=== PATIENT | female | born 1935 | race Caucasian/White ===

== ENCOUNTER 2017-06-13 18:33 | Emergency (ER) | payer MEDICARE, OTHER ==
--- NOTE | 2017-06-13 19:13 | ED.PDOC ---
History of Present Illness - General Chief Complaint: Neuro Symptoms/Deficits Stated Complaint: altered mental status Time Seen by Provider: 06/13/17 18:55 Source: family Exam Limitations: clinical condition - History of Present Illness Initial Comments: Patient presents with increasing sleepiness for 7 hours. The daughter is here and says that the patient vomited once and had one episode of diarrhea. Otherwise, she has had not other symptoms nor complaints except for the sleepiness. She has stayed in bed for seven hours and slept. She is arousable and will answer questions but goes back to sleep almost immediately. She denies any pain complaints. No known history of recent falls. The family says that she has been walking 5 miles per day in preparation for an "olympics" competition that her care facility is putting on. No cardiac nor CVA history. No hx of DM/ smoking. No other complaints. Timing/Duration: unsure, other - 7 hours Severity: moderate Improving Factors: nothing Worsening Factors: nothing Associated Symptoms: denies symptoms Allergies/Adverse Reactions: Allergies Codeine Allergy (Verified 10/05/15 12:11) Other Causes itching Home Medications: Ambulatory Orders Aspirin [Dmaon Low Dose] 81 mg PO DAILY 10/05/15 Cholecalciferol [Vitamin D] 400 unit PO DAILY 10/05/15 Cyanocobalamin [Vitamin B12] 1,000 mcg PO DAILY 10/05/15 Loratadine [Claritin] 10 mg PO DAILY PRN 10/05/15 Multiple Minerals W/ Vitamins [Calcium Citrate +] 2 tab PO DAILY 10/05/15 Multiple Vitamins W/ Minerals [Multivitamin Adults] 1 tab PO DAILY 10/05/15 Non-Formulary Medication 1 drop OPHTH BID 10/05/15 Probiotic Product [Probiotic] 1 tab PO DAILY 10/05/15 prednisoLONE ACETATE 1% OPHTH [Econopred Plus] 5 ml OPHTH DAILY 10/05/15 Lisinopril 20 mg PO DAILY #0 10/06/15 Review of Systems - Review of Systems Constitutional: States: see HPI EENTM: States: no symptoms reported Respiratory: States: no symptoms reported Cardiology: States: no symptoms reported Gastrointestinal/Abdominal: States: no symptoms reported Musculoskeletal: States: no symptoms reported Skin: States: no symptoms reported Neurological: States: see HPI Endocrine: States: no symptoms reported Hematologic/Lymphatic: States: no symptoms reported Past Medical History (General) - Patient Medical History Hx Stroke: Yes - TIA Hx of COPD: No Hx Cardiac Disorders: Yes - hyperlipidemia, heart murmur since childhood Hx Congestive Heart Failure: No Hx Hypertension: Yes Hx Diabetes: No Hx MRSA: No - Vaccination History Hx Influenza Vaccination: Yes Hx Pneumococcal Vaccination: Yes - Social History Hx Tobacco Use: No - Activities of Daily Living [facility] (if applicable):: [place] Family Medical History - Family History Mother Living Status: Hx Cardiac Disease: Yes - [place] Physical Exam - Physical Exam General Appearance: Lethargic Eye Exam: bilateral normal Ears, Nose, Throat: normal ENT inspection Neck: non-tender, full range of motion, supple Respiratory: chest non-tender, lungs clear, normal breath sounds Cardiovascular/Chest: normal peripheral pulses, regular rate, rhythm, no edema Gastrointestinal/Abdominal: normal bowel sounds, non tender, soft Back Exam: normal inspection, no CVA tenderness Extremity: normal range of motion, non-tender, normal inspection Neurologic: web mobile designer II-XII nml as tested, no motor/sensory deficits, other - sleepy Skin Exam: normal color Lymphatic: no adenopathy Progress - Progress Progress: 06/13/17 19:56 Laboratory Tests 06/13/17 06/13/17 06/13/17 19:02 19:03 19:03 WBC RBC Hgb Hct MCV MCH MCHC RDW Plt Count MPV Absolute Neuts (auto) Absolute Lymphs (auto) Absolute Monos (auto) Absolute Eos (auto) Absolute Basos (auto) Neutrophils % Lymphocytes % Monocytes % Eosinophils % Basophils % PT 10.7 INR 0.920 PTT (SP) 28.8 Sodium 135 Potassium 3.8 Chloride 101 Carbon Dioxide 26 Anion Gap 11.8 L BUN 18 Creatinine 0.76 BUN/Creatinine Ratio 23.7 H POC Glucose Random Glucose 134 H Serum Osmolality 274.0 L Calcium 9.3 Total Bilirubin 0.6 AST 24 ALT 21 Alkaline Phosphatase 58 Creatine Kinase 169 H Troponin I < 0.02 Serum Total Protein 7.0 Albumin 4.0 Globulin 3.0 Albumin/Globulin Ratio 1.3 Salicylates Acetaminophen 06/13/17 06/13/17 06/13/17 19:30 19:30 19:30 WBC 7.7 RBC 4.49 Hgb 13.2 Hct 39.5 MCV 87.9 MCH 29.3 MCHC 33.3 RDW 14.4 Plt Count 251 MPV 8.2 Absolute Neuts (auto) 6.80 Absolute Lymphs (auto) 0.70 L Absolute Monos (auto) 0.20 Absolute Eos (auto) 0.00 Absolute Basos (auto) 0.00 Neutrophils % 88.0 H Lymphocytes % 9.4 L Monocytes % 2.2 Eosinophils % 0.1 L Basophils % 0.3 PT INR PTT (SP) Sodium Potassium Chloride Carbon Dioxide Anion Gap BUN Creatinine BUN/Creatinine Ratio POC Glucose 130 H Random Glucose Serum Osmolality Calcium Total Bilirubin AST ALT Alkaline Phosphatase Creatine Kinase Troponin I Serum Total Protein Albumin Globulin Albumin/Globulin Ratio Salicylates < 4.0 Acetaminophen < 10.[address] head showed large intraparenchymal bleed. Patient transferred to [facility] for further consult with Dr. Valdes. - EKG/XRAY/CT CT Ordered: Yes Departure - Departure Clinical Impression: Intracerebral hemorrhage Disposition: Transfer to Hospital Condition: Serious Departure Forms: ED Discharge - Pt. Copy, Patient Portal Self Enrollment Diet: other - NPO Activity: other - as per hospitalist Referrals: Prabhjot Noland MD [Primary Care Provider] - 1-2 Weeks Home Medications: Ambulatory Orders Aspirin [Damon Low Dose] 81 mg PO DAILY 10/05/15 Cholecalciferol [Vitamin D] 400 unit PO DAILY 10/05/15 Cyanocobalamin [Vitamin B12] 1,000 mcg PO DAILY 10/05/15 Loratadine [Claritin] 10 mg PO DAILY PRN 10/05/15 Multiple Minerals W/ Vitamins [Calcium Citrate +] 2 tab PO DAILY 10/05/15 Multiple Vitamins W/ Minerals [Multivitamin Adults] 1 tab PO DAILY 10/05/15 Non-Formulary Medication 1 drop OPHTH BID 10/05/15 Probiotic Product [Probiotic] 1 tab PO DAILY 10/05/15 prednisoLONE ACETATE 1% OPHTH [Econopred Plus] 5 ml OPHTH DAILY 10/05/15 Lisinopril 20 mg PO DAILY #0 10/06/15
--- NOTE | 2017-06-13 19:28 | CT ---
EXAM DESCRIPTION: Head CLINICAL HISTORY: altered mental status COMPARISON: MR brain 04/30/2013 TECHNIQUE: Contiguous axial CT images of the head were obtained. Coronal and sagittal reconstructions were created from the axial data. This exam was performed according to our departmental dose-optimization program, which includes automated exposure control, adjustment of the mA and/or kV according to patient size and/or use of iterative reconstruction technique. FINDINGS: There is a large intraparenchymal left frontal lobe hemorrhage with surrounding edema. This causes rightward shift of midline structures and effaces the left lateral ventricular frontal horn. No other hemorrhage is seen elsewhere. Severe patient motion limits detail. No etiology for the hemorrhage is seen on this noncontrast CT scan. Reconstruction images are severely limited by patient motion. IMPRESSION: Large intraparenchymal left frontal lobe hemorrhage. Possible etiologies include hemorrhagic mass, aneurysm or other vascular malformation, hypocoagulability/bleeding diathesis or other etiology. I am attempting to reach the referring clinician now. Electronically signed by: Khang Loco 06/13/2017 7:27 PM CDT
--- NOTE | 2017-06-13 19:50 | RAD ---
EXAM DESCRIPTION: Chest,1 View CLINICAL HISTORY: altered mental status COMPARISON: None. FINDINGS: Cardiac silhouette is within normal limits. There is no focal parenchymal or pleural disease. Visualized osseous structures are within normal limits. IMPRESSION: No evidence of acute cardiopulmonary disease. Electronically signed by: Khang Loco 06/13/2017 7:48 PM CDT
[2017-06-13 20:47] VITALS: BP 161/75; TEMP 98.5; O2SAT 98
== END 2017-06-13 20:45 | disposition short-term general hospital (02) ==
LOC: ER 18:33
DX: I61.8 Other nontraumatic intracerebral hemorrhage (principal); E78.5 Hyperlipidemia, unspecified; R01.1 Cardiac murmur, unspecified; I10 Essential (primary) hypertension; Z79.82 Long term (current) use of aspirin; Z79.899 Other long term (current) drug therapy

== ENCOUNTER → 2017-08-18 | Outpatient (CLI) | payer OTHER | LOC: BFHH 08:41 | PROVIDERS: ATTEND Family Medicine | DX: I10 Essential (primary) hypertension (principal); E78.5 Hyperlipidemia, unspecified; Z79.899 Other long term (current) drug therapy ==

== ENCOUNTER → 2017-09-03 | Outpatient (CLI) | payer OTHER ==
--- NOTE | 2017-09-03 09:17 | CT ---
EXAM DESCRIPTION: Head CLINICAL HISTORY: Transient cerebral ischemic attack, unspecified COMPARISON: Previous CT head October 05, 2015 and more recent comparison CT head June 13, 2017 TECHNIQUE: Noncontrast head CT was performed with routine protocol. FINDINGS: Compared to previous study, the large left frontal hemorrhage has been evacuated with a left frontal craniotomy flap. Linear hyperdensity deep to the flap is seen which measures 2 mm in thickness. Thickened dura of the flap or thin residual postoperative subdural hematoma would be the main considerations. Low density of the left frontal lobe is consistent with encephalomalacia. High density from the intraparenchymal hemorrhage has resolved. Low-density white matter is consistent with chronic microvascular ischemic changes. Ventricles are prominent as are the sulci consistent with generalized senescent atrophy. No new defect of the arredondo matter stripe to suggest an acute infarction. No new hyperdensity to suggest intracranial hemorrhage other than that related to the previous surgery and the previous left frontal bleed. IMPRESSION: Postoperative changes of left craniotomy with thin residual crescent of subdural blood or thickened dura. Encephalomalacia of the left frontal lobe. Generalized age-related cerebral volume loss with chronic microvascular ischemic changes in the white matter. This exam was performed according to our departmental dose-optimization program, which includes automated exposure control, adjustment of the mA and/or kV according to patient size and/or use of iterative reconstruction technique. Total DLP equals 859.97 mGycm. Electronically signed by: Amrik Whipple MD 09/03/2017 9:15 AM CDT
== END ==
LOC: CT 08:10
DX: G45.9 Transient cerebral ischemic attack, unspecified (principal); G93.89 Other specified disorders of brain; Z98.890 Other specified postprocedural states

== ENCOUNTER → 2018-11-23 | Outpatient (CLI) | payer OTHER | LOC: GMA MATASK 10:44 | PROVIDERS: ATTEND Family Medicine | DX: I10 Essential (primary) hypertension (principal) ==

== ENCOUNTER → 2019-07-08 | Outpatient (CLI) | payer OTHER ==
--- NOTE | 2019-07-08 11:46 | CT ---
EXAM DESCRIPTION: Head w/wo Contrast CLINICAL HISTORY: ALTERED MENTAL STATUS UNSPEC COMPARISON: September 03, 2017 TECHNIQUE: CT brain is performed prior to and following IV administration of nonionic contrast. MPR reformatted images obtained. This exam was performed according to our departmental dose-optimization program, which includes automated exposure control, adjustment of the mA and/or kV according to patient size and/or use of iterative reconstruction technique. FINDINGS: Postoperative changes involving the left-sided calvarium particularly in the left frontal region with previous fixation of calvarial flap is noted and a essentially nondisplaced fracture line or craniotomy extending near the vertex of the skull posteriorly on the left is unchanged from 2018 examination. Extensive periventricular and subcortical white matter changes of aging and small vessel disease noted. Encephalomalacia of the left frontal lobe inferiorly and anteriorly is unchanged from previous study. No mass effect or midline shift is evident with no evidence of subarachnoid or intracranial or subdural hemorrhage. Mild enlargement of the anterior horn left lateral ventricle consistent with atrophic changes is unchanged. The visualized petrous ridges and upper paranasal sinuses remain clear without acute inflammation. Postcontrast imaging demonstrates normal meningeal and vascular structures. Acute or chronic subdural fluid collection or epidural fluid collection is not apparent. The third and fourth ventricles remain midline. No specific abnormality other than mild atrophy and posterior fossa. IMPRESSION: 1. Postoperative changes with left frontal craniotomy and either craniotomy or incompletely healed nondisplaced fracture extending near the vertex of the skull on the left posteriorly and unchanged from 2018. 2. Extensive white matter changes periventricular and subcortical region both cerebral hemispheres consistent with aging and small vessel disease. 3. Atrophy volume loss and encephalomalacia of the inferior left frontal lobe anteriorly. This is unchanged from prior study. 4. No enhancing mass effect, midline shift or extra-axial fluid collection or intracranial hemorrhage noted. Electronically signed by: Cameron Solomon MD 07/08/2019 11:44 AM CDT
== END ==
LOC: CT 09:54
PROVIDERS: ATTEND Family Medicine
DX: R41.82 Altered mental status, unspecified (principal); G31.1 Senile degeneration of brain, not elsewhere classified; G93.89 Other specified disorders of brain; R90.82 White matter disease, unspecified; M89.9 Disorder of bone, unspecified; Z98.890 Other specified postprocedural states